=== PATIENT | female | born 1930 | race Caucasian/White ===

== ENCOUNTER 2018-10-04 17:03 | Inpatient (IN) | payer MEDICARE, MEDICAID ==
[~2018-10-04] VITALS: Ht 161.3 cm; Wt 73.4 kg
[~2018-10-04 17:03] MED LIST: AMLO5TAB4 PO; ASPI-496 PO; ATOR10TA9 PO; DOXA2TAB9 PO; HYDR25TA6 PO; HYDR50TA3 PO; LEVO25TA4 PO; LEVO750T26 PO; LORA-445 PO; LOSA100T14 PO; METO50TA82 PO; SENN-177 PO
--- NOTE | 2018-10-04 17:15 | NUR ---
PT BIB EMS. REPORT RECIEVED BY EMS. PT HAD BP OF 240/120 W CO OF DIZZINESS WHEN PATIENT TURNS HEAD. PT GIVEN ZOFRAN, 5MG OF METEPROLOL (ORDERS FROM [facility]), BP WENT DOWN TO 160/90. BLOOD SUGAR 132. PT TRANSFERRED TO [facility]. PT DOES NOT APPEAR IN ANY DISTRESS. DENIES CHEST PAIN, DENIES HEADACHE. GROSS NEURO INTACT. MONITOR IN PLACE, CARDIAC, O2, GIVEN BLANKET.
[2018-10-04] MEDS ORDERED: MECLIZINE CHEWABLE 25 MG TAB PO ONE (17:30)
[2018-10-04] MEDS ORDERED: SODIUM CHLORIDE FLUSH 10ML SYR IVF ONE (17:30)
[2018-10-04] MEDS ORDERED: ONDANSETRON 2MG/ML, 2ML IVPush ONE (17:30)
[2018-10-04] MEDS ORDERED: PLEASE ENTER HEIGHT AND WEIGHT MC SCH (17:30)
[2018-10-04] MEDS ORDERED: ONDANSETRON 2MG/ML, 2ML ONE (17:34)
[2018-10-04] MEDS ORDERED: MECLIZINE CHEWABLE 25 MG TAB ONE (17:34)
[2018-10-04 17:56] LABS: BASOPHILS # (AUTO) 0.02 x10^3/uL (0-0.1); BASOPHILS % (AUTO) 0 % (0-1); EOSINOPHILS # (AUTO) 0.29 x10^3/uL (0-0.4); EOSINOPHILS % (AUTO) 4 % (1-7); LYMPHOCYTES # (AUTO) 1.23 x10^3/uL (1-3.4); LYMPHOCYTES % (AUTO) 15 % (22-44); MD NO; MEAN CORPUSCULAR HEMOGLOBIN 31.6 pg (27.0-34.8); MEAN PLATELET VOLUME 7.2 fL (7.4-10.4); MONOCYTES # (AUTO) 0.66 x10^3/uL (0.2-0.8); MONOCYTES % (AUTO) 8 % (2-9); NEUTROPHILS % (AUTO) 73 % (42-75); PLATELET COUNT 276 x10^3/uL (130-400); RED BLOOD COUNT 3.98 x10^6/uL (3.82-5.3); RED CELL DISTRIBUTION WIDTH 14.7 % (9.6-15.2)
[2018-10-04 18:05] LABS: ALANINE AMINOTRANSFERASE 23 U/L (12-78); ALBUMIN 3.3 g/dL (3.4-5.0); ANION GAP 9 mmol/L (5-15); CALCIUM 8.5 mg/dL (8.5-10.1); CHLORIDE 105 mmol/L (98-107); CREATININE 1.18 mg/dL (0.55-1.02)
--- NOTE | 2018-10-04 18:06 | NUR ---
PT BP REMAINS HTN 185/90. AWARE. NO NEW ORDERS
[2018-10-04 18:07] LABS: ALKALINE PHOSPHATASE 106 U/L (45-117); BILIRUBIN,TOTAL 0.9 mg/dL (0.2-1.0); TOTAL PROTEIN 7.4 g/dL (6.4-8.2)
[2018-10-04] MEDS ORDERED: LOSA50TA14 PO (18:29)
--- NOTE | 2018-10-04 18:35 | NUR ---
PT O2 SAT WHILE SLEEPING 89%, PLACED ON 2L O2, NOW 96%. CO OF DIZZINESS, STILL HTN, MD AT BEDSIDE. PT RESTING COMFORTABLE, GIVEN BLANKET.
--- NOTE | 2018-10-04 18:45 | NUR ---
PT REQUESTING TO CALL [phone] RACHEL, FRIEND
[2018-10-04] MEDS ORDERED: SODIUM CHLORIDE FLUSH 10ML SYR IVF PRN (19:00)
[2018-10-04] MEDS ORDERED: ONDANSETRON 2MG/ML, 2ML IVPush PRN (19:00)
[2018-10-04] MEDS ORDERED: ACETAMINOPHEN 325 MG TABLET PO PRN (19:00)
[2018-10-04] MEDS ORDERED: MECLIZINE CHEWABLE 25 MG TAB PO PRN (19:00)
--- NOTE | 2018-10-04 19:01 | NUR ---
REPORT GIVEN TO SALLY, PT FRIEND RACHEL CALLED AND WOULD LIKE TO BE CALLED WHEN TRANSFERRED [phone]. PT TRANSPORTED TO MRI
--- NOTE | 2018-10-04 19:14 | NUR ---
REPORT TO RONNA NELSON
[2018-10-04] MEDS ORDERED: GADOBUTROL 7.5 MMOL/7.5 ML PFS ONE (19:22)
[2018-10-04] MEDS ORDERED: hydrALAzine 20 MG/ML, 1ML IV PRN (19:30)
[2018-10-04 19:59] VITALS: BP 149/74
[2018-10-04] MEDS ORDERED: LEVO50TA5 PO (20:53)
[2018-10-04] MEDS ORDERED: METO-93 PO (20:55)
[2018-10-04] MEDS ORDERED: ATORVASTATIN 10 MG TABLET PO SCH (21:00)
[2018-10-04] MEDS: SODIUM CHLORIDE 0.9% 1,000 ML IV SCH (21:06)
[2018-10-04] MEDS: METOPROLOL TARTRATE 50 MG TABLET PO SCH (21:14)
[2018-10-05 01:11] VITALS: BP 119/62
[2018-10-05 05:12] LABS: BASOPHILS # (AUTO) 0.03 x10^3/uL (0-0.1); BASOPHILS % (AUTO) 1 % (0-1); EOSINOPHILS # (AUTO) 0.22 x10^3/uL (0-0.4); EOSINOPHILS % (AUTO) 4 % (1-7); LYMPHOCYTES % (AUTO) 25 % (22-44); MD NO; MEAN CORPUSCULAR HEMOGLOBIN 30.6 pg (27.0-34.8); MEAN CORPUSCULAR VOLUME 92.6 fL (80-100); MEAN PLATELET VOLUME 7.2 fL (7.4-10.4); MONOCYTES # (AUTO) 0.53 x10^3/uL (0.2-0.8); MONOCYTES % (AUTO) 9 % (2-9); NEUTROPHILS % (AUTO) 62 % (42-75); PLATELET COUNT 235 x10^3/uL (130-400); RED BLOOD COUNT 3.51 x10^6/uL (3.82-5.3); RED CELL DISTRIBUTION WIDTH 14.2 % (9.6-15.2)
[2018-10-05 05:29] LABS: ANION GAP 7 mmol/L (5-15); CALCIUM 8.3 mg/dL (8.5-10.1); CHLORIDE 109 mmol/L (98-107); CREATININE 1.06 mg/dL (0.55-1.02)
[2018-10-05] MEDS ORDERED: LEVOTHYROXINE 50 MCG TABLET PO SCH (06:00)
[2018-10-05 06:58] VITALS: BP 146/76
[2018-10-05] MEDS ORDERED: LOSARTAN 50MG TABLET PO SCH (09:00)
[2018-10-05] MEDS: METOPROLOL TARTRATE 50 MG TABLET PO SCH (09:19)
[2018-10-05 12:12] VITALS: BP 155/84
[2018-10-05] MEDS: SODIUM CHLORIDE 0.9% 1,000 ML IV SCH (13:10)
[2018-10-05] MEDS ORDERED: MECL-85 PO (16:27)
[2018-10-05] MEDS ORDERED: POTASSIUM CHLORIDE 20 MEQ TAB.ER.PRT PO ONE (16:30)
== END 2018-10-05 18:37 | disposition home or self-care (01) | DRG 305 ==
LOC: ED 19:09 → 4WST 20:24
PROVIDERS: ADMIT Internal Medicine; ATTEND Internal Medicine
DX: I16.0 Hypertensive urgency (principal); H81.10 Benign paroxysmal vertigo, unspecified ear; E78.5 Hyperlipidemia, unspecified; E03.9 Hypothyroidism, unspecified; E87.6 Hypokalemia; F41.1 Generalized anxiety disorder; I10 Essential (primary) hypertension; Z79.890 Hormone replacement therapy; Z88.8 Allergy status to other drugs, medicaments and biological substances; Z79.899 Other long term (current) drug therapy; Z86.19 Personal history of other infectious and parasitic diseases; Z90.722 Acquired absence of ovaries, bilateral; Z98.49 Cataract extraction status, unspecified eye; Z71.89 Other specified counseling
CPT/HCPCS: 36415; 70553; 71045; 80048; 80053; 85025; 93005; 96374; A9585; G0378; J2405; J7030